=== PATIENT | female | born 1985 | race Caucasian/White ===

== ENCOUNTER 2017-12-15 15:46 | Emergency (ER) | payer OTHER ==
[2017-12-15 16:07] VITALS: BP 114/69
--- NOTE | 2017-12-15 16:21 | UC ---
Throat Pain/Nasal Willi HPI - HPI Summary HPI Summary: 32 yo female presents with 2 weeks of sinus pain/pressure/congestion. She is currently 7.5months and has called her brown sourer about this, whom advised pt to take loratidine. She has been taking this for about a week with no relief. She denies fever, chills, cough, SOB, chest pain, abdominal pain, pelvic pain, or vaginal bleeding. - History of Current Complaint Chief Complaint: UCGeneralIllness Stated Complaint: SINUS PRESSURE,PAIN Time Seen by Provider: 12/15/17 16:21 Hx Obtained From: Patient Onset/Duration: Gradual Onset Severity: Mild Pain Intensity: 4 Pain Scale Used: 0-10 Numeric - Allergies/Home Medications Allergies/Adverse Reactions: Allergies Allergy/AdvReac Type Severity Reaction Status Date / Time No Known Allergies Allergy Verified 12/15/17 16:07 Home Medications: Home Medications Calcium Carbonate [Calcium Antacid] 200 mg PO DAILY WITH MEAL 12/15/17 [History Confirmed 12/15/17] Loratadine 10 mg PO DAILY WITH MEAL 12/15/17 [History Confirmed 12/15/17] PMH/Surg Hx/FS Hx/Imm Hx - Additional Past Medical History Additional PMH: None - Surgical History Surgical History: Yes Surgery Procedure, Year, and Place: c section. appy - Family History Known Family History: Positive: None - Social History Occupation: Employed Full-time Lives: With Family Alcohol Use: None Substance Use Type: None Smoking Status (MU): Never Smoked Tobacco Review of Systems Constitutional: Negative Skin: Negative Eyes: Negative ENT: Nasal Discharge, Sinus Congestion, Sinus Pain/Tenderness Respiratory: Negative Cardiovascular: Negative Gastrointestinal: Negative Neurological: Negative Psychological: Negative All Other Systems Reviewed And Are Negative: Yes Physical Exam - Summary Physical Exam Summary: GENERAL: NAD. WDWN. No pain distress. SKIN: No rashes, sores, lesions, or open wounds. HEENT: Head: AT/NC Eyes: EOM intact. Conjunctiva clear without inflammation or discharge. Ears: Hearing grossly normal. TMs intact, no bulging, erythema, or edema. Nose: Nasal mucosa mildly swollen and erythematous with yellow/ clear discharge. TTP maxillary sinus. Throat: Posterior oropharynx without exudates, erythema, or tonsillar enlargement. Uvula midline. NECK: Supple. Nontender. No lymphadenopathy. CHEST: CTAB. No r/r/w. No accessory muscle use. Breathing comfortably and in no distress. CV: RRR. Without m/r/g. Pulses intact. Brisk cap refill. NEURO: Alert. CN II-XII grossly intact. PSYCH: Age appropriate behavior. Triage Information Reviewed: Yes Vital Signs: Initial Vital Signs Temp 98.3 F 12/15/17 16:03 Pulse 82 12/15/17 16:03 Resp 22 12/15/17 16:03 BP 114/69 12/15/17 16:03 Pulse Ox 99 12/15/17 16:03 Vital Signs Reviewed: Yes Throat Pain/Nasal Course/Dx - Course Course Of Treatment: Sinusitis - Differential Dx/Diagnosis Provider Diagnoses: Sinusitis Discharge - Sign-Out/Discharge Documenting (check all that apply): Patient Departure - Discharge Plan Condition: Stable Disposition: HOME Prescriptions: Amoxicillin PO (*) [Amoxicillin 500 MG CAP*] 500 mg PO Q12H #20 cap Patient Education Materials: Sinusitis (ED) Referrals: Sanjay Salmeron MD [Primary Care Provider] - Additional Instructions: If you develop a fever, shortness of breath, chest pain, new or worsening symptoms - please call your PCP or go to the ED. - Billing Disposition and Condition Condition: STABLE Disposition: Home
== END 2017-12-15 16:45 | disposition home or self-care (01) ==
LOC: UCEAST 15:46
DX: J32.9 Chronic sinusitis, unspecified (principal)
CPT/HCPCS: 99212; G0463

== ENCOUNTER 2018-01-14 07:45 | Inpatient (IN) | payer OTHER ==
[2018-01-27] MEDS ORDERED: Buffered Lidocaine 0.9% SYRIN* 5 ML/SYR SYRINGE INTRADERM ONE (20:46)
[2018-01-28] MEDS ORDERED: Acetaminophen TAB* 325 MG PO ONE (06:00)
[2018-01-28] MEDS ORDERED: Sodium Citrate/Citric Acid* 15 ML UDC PO ONE (06:00)
--- OUTSIDE RECORDS SUMMARY | 2018-01-28 06:07 | XMS REPORT ---
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 Payers Type Date Identification Numbers Payment Provider Subscriber Commercial Policy Number: [id number] [facility] Crystal Montalvo PayID: [id number] [address] [place] [address] Medigap Part B Policy Number: [id number] Medicaid [place] Crystal Montalvo PayID: [id number] [address] [place] [address] Problems Date Description Provider Status Onset: Gestation period, 23 weeks Active Onset: Vaginal bleeding Active Family History Date Family Member(s) Problem(s) Comments Father due to Unknown Causes () Mother due to Unknown Causes () Children 2 First Daughter A&W Second Daughter A&W Siblings 1 First Brother due to Accident () Paternal Grandfather due to Natural Causes () Paternal Grandmother due to Natural Causes () Maternal Grandfather due to Natural Causes () Maternal Grandmother A&W Social History Type Date Description Comments Education Highest Level Completed Is High School Diploma Marital Status Single Lives With Boyfriend Lives With Daughters Diet Lactose Intolerant Pets None 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 Cigarette Use Former Cigarette Smoker 2 PPD, quit 2014 ETOH Use Alcohol Use Prior To occasional Recreational Drug Use Does Not Use Drugs Smoking Patient has never smoked Daily Caffeine Does not consume caffeine quit with STD's HPV Allergies, Adverse Reactions, Alerts Date Description Reaction Status Severity Comments 07/24/2017 NKDA active Medications Medication Date Status Form Strength Qnty SIG Indications Ordering Provider No Active Active Unknown Medications 018 Calcium Hx Chewtabs 500mg Once Unknown Antacid 018 - Daily With 018 Meal Loratadine Hx Capsules 10mg Once Unknown 018 - Daily With 018 Meal Amoxicillin Hx Capsules 500mg 20caps Q12H Unknown 018 - 018 Miconazole 7 Hx Suppository 100mg 7units 1 per Mahrie 018 - vagina Rawls, CNM QHS 018 Docusate Hx Capsules 100mg 30caps 1 cap by Erianna Sodium 018 - mouth up Coleman, to 3 CNM 018 times daily as needed Medications Administered in Office Medication Date Status Form Strength Qnty SIG Indications Ordering Provider PT SCRN Tbco Administered Injection Mary Id as Non User 018 MD Cricket Injection Rho Administered Injection Phaelon (D) Immune 018 MD Faviola Globulin, Human, One Dose Package Immunizations CPT Code Status Date Vaccine Lot # [id number] Given 11/04/2017 Tetnus, Diptheria Toxoids And Acellular Pertussis, 5N2YG PT > 7Yrs Old Vital Signs Date Vital Result Comment 01/20/2018 BP Systolic 130 mmHg BP Diastolic 84 mmHg Body Temperature 98.6 F Height 65 inches 5'5" Weight 200.00 lb BMI (Body Mass Index) 33.3 kg/m2 01/15/2018 BP Systolic 123 mmHg BP Diastolic 79 mmHg Body Temperature 97.5 F Heart Rate 81 /min Respiratory Rate 20 /min Height 65 inches Weight 190.00 lb BMI (Body Mass Index) 31.6 kg/m2 12/15/2017 BP Systolic 114 mmHg BP Diastolic 69 mmHg Body Temperature 98.3 F Heart Rate 82 /min Respiratory Rate 22 /min Height 65 inches Weight 183.00 lb BMI (Body Mass Index) 30.4 kg/m2 07/24/2017 BP Systolic 104 mmHg BP Diastolic 60 mmHg Height 64.75 inches 5'4.75" Weight 158.00 lb BMI (Body Mass Index) 26.5 kg/m2 Last Menstrual Period [id number] 3 Parity 2 Results Test Date Test Result H/L Range Note Urine Culture And 01/20/2018 Urine Culture SEE RESULT BELOW 1 Sensitivities Urinalysis Profile 01/15/2018 Urine Color Yellow 2 Urine Appearance Cloudy 2 Urine Specific Drasco 1.006 Low 1.010-1.030 2 Urine pH 7.0 5-9 2 Urine Urobilinogen Negative Negative 2 Urine Ketones Negative Negative 2 Urine Protein Negative Negative 2 Urine Leukocytes 3+ Negative 2 Urine Blood Negative Negative 2 Urine Nitrite Negative Negative 2 Urine Bilirubin Negative Negative 2 Urine Glucose Negative Negative 2 Urine White Blood Cell 3+(>20/hpf) Absent 2 Urine Red Blood Cell 2+(6-10/hpf) Absent 2 Urine Bacteria 3+ Absent 2 Urine Squamous Epithelial Cell Present Absent 2 Urine Culture And 01/15/2018 Urine Culture SEE RESULT BELOW 2, 3 Sensitivities Laboratory test finding 01/05/2018 Genital For GRP B SEE RESULT BELOW 4 Strep Only Laboratory test finding 11/04/2017 Glucose 1 HR Post 105 mg/dL 70-160 5 Prandial CBC With No Diff 11/04/2017 White Blood Count 10.7 10^3/uL 3.5-10.8 Red Blood Count 4.06 10^6/uL 4.00-5.40 Hemoglobin 11.8 g/dL Low 12.0-16.0 Hematocrit 36 % 35-47 Mean Corpuscular Volume 88 fL 80-97 Mean Corpuscular Hemoglobin 29 pg 27-31 Mean Corpuscular HGB Conc 33 g/dL 31-36 Red Cell Distribution Width 14 % 10.5-15 Platelet Count 198 10^3/uL 150-450 Mean Platelet Volume 9.9 um3 7.4-10.4 Laboratory test finding 11/04/2017 AB Screen NEGATIVE 6 Urine Culture And 08/20/2017 Urine Culture SEE RESULT BELOW 7 Sensitivities Laboratory test finding 08/20/2017 Gardnerella/Yeast SEE RESULT BELOW 8 : Vaginal Dna Drug Abuse W/Confirm, Ur 08/20/2017 Urine Alcohol Negative mg/dL Cutoff: 10 Urine Amphetamine Negative ng/mL 9 Urine Barbiturates Negative ng/mL 10 Urine Benzodiazepines Negative ng/mL 11 Urine Cocaine Negative ng/mL 12 Urine Methadone Negative ng/mL Negative 13 Urine Opiates Negative ng/mL Negative 14 Urine Phencyclidine Negative ng/mL Cutoff: 25 Urine Tetrahydrocannabinol Negative ng/mL Cutoff: 50 15 Urine Culture And 07/24/2017 Urine Culture SEE RESULT BELOW 16 Sensitivities Lead 07/24/2017 Lead,Venous, B < 1.0 17 HIV 1/2 AB Evaluation 07/24/2017 HIV 1 2 Antibody Nonreactive Nonreactive 18 Type And Screen 07/24/2017 Patient Blood B Negative Type Antibody Screen NEGATIVE CBC With No Diff 07/24/2017 White Blood Count 9.0 10^3/uL 3.5-10.8 Red Blood Count 4.52 10^6/uL 4.0-5.4 Hemoglobin 13.3 g/dL 12.0-16.0 Hematocrit 38 % 35-47 Mean Corpuscular Volume 85 fL 80-97 Mean Corpuscular Hemoglobin 29 pg 27-31 Mean Corpuscular HGB Conc 35 g/dL 31-36 Red Cell Distribution Width 14 % 10.5-15 Platelet Count 165 10^3/uL 150-450 Mean Platelet Volume 9 um3 7.4-10.4 PNL No Urine 07/24/2017 Rubella Screen Immune IU/mL Immune 19 Hemoglobin A1c 4.6 % 4.0-5.6 20 Hepatitis B Surface Ag Nonreactive Nonreactive 21 Syphillis Igg W/Reflex RPR Nonreactive Nonreactive 22 GC/Chlamydia Dna Probe 07/24/2017 Chlamydia trachomatis Rna Negative Negative Neisseria gonorrhoeae (GC) Rna Negative Negative Laboratory test finding 07/24/2017 Cytology SEE RESULT BELOW 23 1 SEE RESULT BELOW Name: CRYSTAL MONTALVO : [address]: Mary Harley MD Acct: [id number] Unit: [id number] AGE: 32 Location: [facility] Re01/20/18 SEX: F Status: REG REF SPEC: [id number] ANNE: 01/20/18-[address] [facility] [address]: Mary Harley MD REQ: [id number] RECD: 01/21/18 STATUS: COMP _ SOURCE: URINE SPDESC: ORDERED: Urine Culture COMMENTS: [id number] Urine Source: Random Procedure Result Reported Site Urine Culture Final 01/22/18- 1210 ML No Growth (<1,000 CFU/mL) * ML - Main Lab . END OF REPORT DEPARTMENT OF PATHOLOGY, [address] [place] [address] Feng Campbell M.D. Director [facility] # [id number] 2 Urine Source: Clean Catch 3 SEE RESULT BELOW Name: CRYSTAL MONTALVO : [address]: Yoon Shafer MD Acct: [id number] Unit: [id number] AGE: 32 Location: [facility] Re01/15/18 SEX: F Status: DEP REF SPEC: [id number] ANNE: 01/15/[address]: Yoon Shafer MD REQ: [id number] RECD: 01/15/18 STATUS: MARTIR ALEMAN DR: Sanjay Salmeron MD _ SOURCE: URINE SPDESC: ORDERED: Urine Culture Procedure Result Reported Site Urine Culture Final 01/17/18- 43 ML No growth of clinically significant organisms * ML - Main Lab . END OF REPORT DEPARTMENT OF PATHOLOGY, [address] [place] [address] Feng Campbell M.D. Director [facility] # [id number] 4 SEE RESULT BELOW Name: CRYSTAL MONTALVO : [address]: Sanjay Salmeron MD Acct: [id number] Unit: [id number] AGE: 32 Location: [facility] Re01/05/18 SEX: F Status: REG REF SPEC: [id number] ANNE: 01/05/18-[address] [facility] [address]: Sanjay Salmeron MD REQ: [id number] RECD: 01/06/186470 STATUS: COMP _ SOURCE: CER/VAG/RE SPDESC: ORDERED: Grp B Strp Scrn COMMENTS: [id number] QUERIES: Is Patient Penicillin Allergic? N Is patient penicillin allergic and/or sensitivities needed? N Provider Requisition # C77#[id number]_ Procedure Result Reported Site Group B Strep Culture Screen Final 01/08/18- 823 ML Group B Strep Screen Negative * ML - Main Lab . END OF REPORT DEPARTMENT OF PATHOLOGY, [address] [place] [address] Feng Campbell M.D. Director [facility] # [id number] 5 [id number] 7 SEE RESULT BELOW Name: CRYSTAL MONTALVO : [address]: Nettie Whitehead [facility] Acct: [id number] Unit: [id number] AGE: 32 Location: [facility] Re08/20/17 SEX: F Status: REG REF SPEC: [id number] ANNE: 08/20/17-[address]: Nettie Whitehead [facility] REQ: [id number] RECD: 08/21/17 STATUS: COMP _ SOURCE: URINE SPDESC: ORDERED: Urine Culture COMMENTS: [id number] Urine Source: Random Procedure Result Reported Site Urine Culture Final 08/22/17- 1244 ML No Growth (<1,000 CFU/mL) * - [facility] Raphael . END OF REPORT DEPARTMENT OF PATHOLOGY, [address] [place] [address] Feng Campbell M.D. Director [facility] # [id number] 8 SEE RESULT BELOW Name: CRYSTAL MONTALVO : [address]: Nettie Whitehead CNM Acct: [id number] Unit: [id number] AGE: 32 Location: [facility] Re08/20/17 SEX: F Status: REG REF SPEC: [id number] ANNE: 08/20/17-[address] [facility] [address]: Nettie Whitehead [facility] REQ: [id number] RECD: 08/21/17 STATUS: COMP _ SOURCE: VAGINAL SPDESC: ORDERED: AlrinYeast DNA COMMENTS: [id number] Procedure Result Reported Site Gardnerella/Yeast: Vaginal DNA Final 08/22/17- 1146 ML Organism 1 Negative Gardnerella Organism 2 POSITIVE BREANNA The presence of G. vaginalis, although suggestive, is not diagnostic for bacterial vaginosis. Results should be interpreted in conjuction with other clinical and laboratory data available. Women with vaginal discharge should be evaluated for risk factors of cervicitis and pelvic inflammatory disease, toxic shock syndrome (S.aureus), and if present, evaluated for organisms not included in this assay such as N. gonorrhoeae, C. trachomatis, Mobiluncus, Mycoplasma and/or Prevotella. Mixed infections may occur. The performance of this test on patient specimens collected during or immediately after antimicrobial therapy is unknown. The presence or absence of Breanna species, or G. vaginalis cannot be used as a test for therapeutic success or failure. * ML - Main Lab . END OF REPORT DEPARTMENT OF PATHOLOGY, [address] [place] [address] Feng Campbell M.D. Director [facility] # [id number] 9 REFERENCE VALUE Cutoff: 500 10 REFERENCE VALUE Cutoff: 200 11 REFERENCE VALUE Cutoff: 100 12 REFERENCE VALUE Cutoff: 150 13 REFERENCE VALUE Cutoff: 300 14 REFERENCE VALUE Cutoff: 300 15 ADDITIONAL INFORMATION This report is intended for use in clinical monitoring or management of patients. It is not intended for use in employment-related testing. Test Performed by: [facility] - [address] [address] 16 SEE RESULT BELOW Name: CRYSTAL MONTALVO : [address]: Violeta Argueta CNM Acct: [id number] Unit: [id number] AGE: 32 Location: [facility] Re07/24/17 SEX: F Status: REG REF SPEC: [id number] ANNE: 07/24/[address] [facility] [address]: Violeta Argueta [facility] REQ: [id number] RECD: 07/24/17 STATUS: COMP _ SOURCE: URINE SPDESC: ORDERED: Urine Culture COMMENTS: [id number] Procedure Result Reported Site Urine Culture Final 07/26/17- 7298 ML No growth of clinically significant organisms * ML - Main Lab . END OF REPORT DEPARTMENT OF PATHOLOGY, [address] [place] [address] Feng Campbell M.D. Director [facility] # [id number] 17 TEST RESULT UNITS REF RANGE Lead, Venous, B <1.0 mcg/dL 0.0-4.9 ADDITIONAL INFORMATION Testing performed by Inductively Coupled Plasma-Mass Spectrometry (ICP-MS). This test was developed and its performance characteristics determined by [facility] in a manner consistent with CLIA requirements. This test has not been cleared or approved by the U.S. Food and Drug Administration. Test Performed by: [facility] [address] [place] [address] 18 It is recognized that currently available assays for the detection of antibodies to HIV-1 and/or HIV-2 may not detect all infected individuals. HIV antibodies may be undetectable in some stages of the infection and in some clinical conditions. The performance of this assay has not been established for populations of infants or children. Assayed by Chemiluminescence Microparticle Immunoassay on the Siemens Advia Centaur CP. Values obtained with different methods or kits cannot be used interchangeably.The diagnostic specificity of the ADVIA Centaur 1/O/2 Enhanced assay in the low risk population was 99.90% (6052/6058) with a 95% confidence interval of 99.78 to 99.96%. 19 [id number] 20 Therapeutic target for the treatment of diabetes mellitus patients is <7% HBA1C, and in selective patients <6.0%. Please refer to [place] [employer] diabetic care guidelines for further information. 21 [id number] 22 Warning: A positive result is not useful for establishing a diagnosis of syphilis. In most situations, such a result may reflect a prior treated infection; a negative result can exclude a diagnosis of syphilis except for incubating or early primary disease. 23 SEE RESULT BELOW Name: CRYSTAL MONTALVO: [address]: Violeta Argueta [facility] Acct: [id number] Unit: [id number] AGE: 32 Location: [facility] Re07/24/17 SEX: F Status: REG REF SPEC: [id number] ANNE: 07/24/17-[address]: Violeta Argueta [facility] REQ: [id number] RECD: 07/27/17-1230 STATUS: SOUT _ ORDERED: TP IMAGE ANAL, HPV/Thin Prep COMMENTS: [id number] Negative for Intraepithelial lesion or Malignancy Fungal organisms morphologically consistent with Breanna species A. Ectocervical/Endocervical Specimen Adequacy: Satisfactory of evaluation Transformation zone component identified Patient Information: HPV: High risk HPV RNA testing regardless of pap results. Actual Specimen Date: 07/24/17 Last Menstrual Date: 05/02/17 Spec Date if unknown: unknown ?: Y Post Menopausal?: N Hysterectomy?: N Previous Abnormal Pap Smears?:N Other Pertinent History: Pt has yeast infection. Date Time Test Result Flag (u) Normal Range 07/24/17 8147 @ HPV RNA POSITIVE A Negative @ @ The high-risk HPV types detected by the assay include: 16, @ 18, 31, 33, 35, 39, 45, 51, 52, 56, 58, 59, 66, and 68. Signed (signature on file) ALLISON Cunningham (ASCP) 07/29 0907 This Pap test was evaluated with the assistance of the Bina TechnologiesPrep Test Imaging System. Due to cytologic findings at the senior managing director microscope, comprehensive manual rescreening by a Telephone Appointment Clerk may be required. The Pap Smear is a screening test designed to aid in the detection of premalignant and malignant conditions of the uterine cervix. It is not a diagnostic procedure and should not be used as the sole means of detecting cervical cancer. Both false- positive and false- negative reports do occur. Depending on your risk status, a Pap smear should be obtained and evaluated every 1-3 years. END OF REPORT DEPARTMENT OF PATHOLOGY, [address] [place] [address] Feng Campbell M.D. Director [facility] # [id number] Procedures Date CPT Code Description Status 01/05/2018 12319 Echography Uterus Limited Completed 12/09/2017 17387 Biophysical Profile Without Non Stress Test Completed 12/09/2017 40230 Echography Uterus Follow-Up Or Repeat Completed 11/04/2017 07664 Echography Uterus Follow-Up Or Repeat Completed 09/21/2017 07062 Echography Uterus Complete Completed Encounters Type Date Location Provider CPT E/M Dx Office Visit 01/20/2018 3:30p [place] [address] O34.211 Plan of Care Future Appointment(s):03/01/2018 11:30 am - Mary Harley MD at [facility]02/04/2018 11:20 am - Rachid Rawls CNM at [facility]01/28/2018 7:45 am - Yoon Shafer MD at [facility] R001/28/2018 7:45 am - Mary Harley MD at [facility] R001/20/2018 - Mary Harley MDO34.211 Matern care for low transverse scar from prev delComments:Pt desires repeat section . Pt accepts risk to section to include but not limited to infection, bleeding ,damage to internal organs, pain ,scarring, need for blood products. Consent form personally reviewed and signed with patient. All questions were answered.
[2018-01-28] MEDS ORDERED: Sodium Citrate/Citric Acid* 15 ML UDC ONE (07:04)
[2018-01-28] MEDS ORDERED: ceFOXitin 2 GM IVPREMIX* 2 GM/50 ML BAG ONE (07:29)
[2018-01-28] MEDS ORDERED: Morphine PF AMP (0.5MG/ML)* 5 MG/10 ML AMP ONE (07:34)
[2018-01-28] MEDS ORDERED: OXYTOCIN* 10 UNITS/ML 1 ML VIAL ONE (07:35)
[2018-01-28] MEDS ORDERED: Bupivacaine-MPF SPINAL* 7.5 MG/ML - 2ML AMP ONE (07:35)
[2018-01-28] MEDS ORDERED: fentaNYL* 50 MCG/ML 2 ML VIAL (100 MCG VIAL) IV PRN (08:21)
[2018-01-28] MEDS ORDERED: Naloxone* 0.4 MG/ML 1 ML VIAL IV PRN ×2 (08:21→08:22)
[2018-01-28] MEDS ORDERED: DiMENhydriNATE IV* 50 MG/ML VIAL IV PUSH PRN (08:22)
[2018-01-28] MEDS ORDERED: Nalbuphine* 10 MG/ML 1 ML VIAL IV PRN (08:22)
[2018-01-28] MEDS ORDERED: Acetaminophen TAB* 325 MG PO PRN (08:22)
[2018-01-28] MEDS ORDERED: PROCHLORPERAZINE INJ 5 MG/ML 2 ML VIAL IV PRN (08:22)
[2018-01-28] MEDS ORDERED: diPHENhydraMINE IV* 50 MG/ML 1 ml VIAL (BENADRYL) IV PRN (08:22)
[2018-01-28] MEDS ORDERED: HYDROcodone/ACETAMIN 5-325 MG* 1 TAB PO PRN ×2 (08:22)
[2018-01-28] MEDS ORDERED: Scopolamine 1.5 mg* PATCH TRANSDERM PRN (08:22)
[2018-01-28] MEDS ORDERED: Ondansetron INJ* 2 MG/ML VIAL IV PRN (08:22)
[2018-01-28] MEDS ORDERED: Ondansetron INJ* 2 MG/ML VIAL ONE (08:28)
[2018-01-28] MEDS ORDERED: EPHEDrine (Pressors)* 50 MG/ML VIAL ONE (08:28)
[2018-01-28] MEDS ORDERED: Famotidine IV* 10 MG/ML 2 ML (20 mg) ONE (08:28)
[2018-01-28] MEDS ORDERED: Ketorolac INJ* 30 MG/ML 1 ML VIAL ONE (08:28)
[2018-01-28] MEDS ORDERED: RHO D Immune Globulin (HUMAN)* 300 MCG = 1,500 I.U. INJ IM ONE (09:22)
[2018-01-28] MEDS ORDERED: Dibucaine 1% 28.35 GM TUBE PR PRN (09:22)
[2018-01-28] MEDS ORDERED: Glycerin ADULT SUPP PR PRN (09:22)
[2018-01-28] MEDS ORDERED: Witch Hazel PAD* JAR TOPICAL PRN (09:22)
[2018-01-28] MEDS ORDERED: Oxytocin in LR* 20 UNITS/1,000 ML BAG IVPB SCH (10:00)
[2018-01-28] MEDS: Docusate CAP* 100 MG PO SCH ×2 (14:15→21:54)
[2018-01-28] MEDS: Simethicone TAB* 80 MG TAB.CHEW PO SCH ×3 (14:15→21:55)
[2018-01-28] MEDS: Ketorolac INJ* 30 MG/ML 1 ML VIAL IV PRN ×2 (15:43→21:55)
[2018-01-29] MEDS ORDERED: Acetaminophen TAB* 325 MG PO PRN
[2018-01-29] MEDS: oxyCODONE/Acetamin 5/325 MG* TAB PO PRN ×5 (00:17→23:28)
--- NOTE | 2018-01-29 02:21 | OP ---
DATE OF OPERATION: 01/28/18 - ROOM #101 DATE OF : 85 SURGEON: Mary Harley MD RETAIL SERVICE SPECIALIST: Soni. PRE-OP DIAGNOSIS: Intrauterine at 39 weeks, desires repeat section. POST-OP DIAGNOSIS: Intrauterine at 39 weeks, desires repeat section, delivered. OPERATIVE PROCEDURE: Repeat low transverse section. ESTIMATED BLOOD LOSS: 600 cc. URINE OUTPUT: 100 cc of concentrated yellow urine. FLUIDS: 2800 cc of crystalloid. FINDINGS: Revealed a vertex female . Nuchal cord x1. No meconium. Apgars were 9 and 9. Weight was 6 pounds 11 ounces. Placenta manually extracted. Intact 3-vessel cord. Normal tubes and ovaries. No evidence of adhesions. COMPLICATIONS: None apparent. DISPOSITION: Stable to recovery room. DESCRIPTION OF PROCEDURE: The patient was placed in dorsal lithotomy position. The abdomen was prepped and draped in a sterile standard fashion. Anesthesia was identified to appropriate level. The patient was identified with the universal protocol for correct procedure, position, and patient. Incision was made through prior incision. This was carried down through to the fascia. The fascia was scored in the midline and extended laterally and superiorly using curved Tobar scissors. It was superiorly and inferiorly from the rectus muscle upon sharp dissection. The peritoneum was then entered bluntly. Peritoneal incision was extended bluntly. Bladder blade was inserted. Lower uterine segment was identified. No evidence of adhesive disease was noted. The lower uterine segment was tented up with an Allis. An incision was made with scalpel. This was carried down through to membranes. The incision was extended laterally and superiorly using bandage scissors. Amniotomy was created for clear fluid. The was delivered vertex. Nuchal cord reduced. Anterior and posterior shoulder delivered. Cord was allowed to pulse for 60 seconds, and the cord was clamped and then cut, and the was handed off to awaiting air crew officer. After appropriate cord blood was obtained , the placenta was then manually extracted and noted to be intact with 3-vessel cord. The uterus was exteriorized. Cavity was wiped clean, noted to be free of any membranes or placental tissue. Normal tubes and ovaries were noted. The incision itself was reapproximated using 0 Vicryl in 2 layers, the first layer running locked, second layer running imbricated. There was a venous khan to the right side of the hysterotomy site, which was made hemostatic with x4 interrupted [id number] suture using 0 Vicryl. Once hemostasis was assured , uterus was returned intra-abdominally. Colic gutters were lavaged. Hysterotomy site was revisualized and noted to be hemostatic. Peritoneum was then reapproximated using 3-0 Vicryl in a running fashion. The subcu and prefascial layer was lavaged. Hemostasis assured. The fascia was then reapproximated using 0 Vicryl x2 in a running fashion. Subcu was lavaged again. Hemostasis assured with Bovie coagulation and the Camper's fascia was reapproximated using 3-0 Vicryl in an interrupted fashion x5. The skin was then reapproximated using 4-0 Monocryl in a subcuticular fashion x1. Mastisol and Steri's were applied. All sponge, needle, instrument, blade counts were correct throughout the case. The patient tolerated the procedure well and went to recovery room in stable condition. [id number]/[facility] #: [id number] [facility] CENTERCody
[2018-01-29] MEDS: Ketorolac INJ* 30 MG/ML 1 ML VIAL IV PRN (04:13)
[2018-01-29 08:30] LABS: ABS Basophils 0 10^3/ul (0-0.2); ABS Eosinophils 0 10^3/ul (0-0.6); ABS Lymphocytes 1.6 10^3/ul (1.0-4.8); ABS Monocytes 0.6 10^3/ul (0-0.8); ABS Neutrophils 7.3 10^3/ul (1.5-7.7); ABS Nucleated RBC 0 10^3/ul; Eosinophil % 0.5 % (0-6); Hematocrit 29 % (35-47); Hemoglobin 9.7 g/dl (12.0-16.0); Lymphocyte % 16.6 % (25-47); Mean Corpuscular HGB Conc 34 g/dl (31-36); Mean Corpuscular Hemoglobin 26 pg (27-31); Mean Corpuscular Volume 77 fL (80-97); Nucleated Red Blood Cells % 0; Platelet Count 144 10^3/ul (150-450); Red Blood Count 3.72 10^6/ul (4.00-5.40); Red Cell Distribution Width 15 % (10.5-15); White Blood Count 9.5 10^3/ul (3.5-10.8)
[2018-01-29] MEDS: Simethicone TAB* 80 MG TAB.CHEW PO SCH ×3 (10:00→19:18)
[2018-01-29] MEDS: Ibuprofen TAB* 600 MG PO PRN ×3 (10:00→23:28)
[2018-01-29] MEDS: Docusate CAP* 100 MG PO SCH ×3 (14:41→19:18)
[2018-01-29] MEDS: Ferrous Gluconate TAB* 324 MG TAB PO SCH (19:18)
[2018-01-30] MEDS: oxyCODONE/Acetamin 5/325 MG* TAB PO PRN ×4 (04:14→20:25)
[2018-01-30] MEDS: Ibuprofen TAB* 600 MG PO PRN ×3 (06:15→17:43)
[2018-01-30] MEDS: Simethicone TAB* 80 MG TAB.CHEW PO SCH ×4 (09:15→20:29)
[2018-01-30] MEDS: Docusate CAP* 100 MG PO SCH ×3 (09:15→20:28)
[2018-01-30] MEDS ORDERED: RHO D Immune Globulin (HUMAN)* 300 MCG = 1,500 I.U. INJ IM ONE (09:25)
[2018-01-30] MEDS: Ferrous Gluconate TAB* 324 MG TAB PO SCH ×3 (11:00→20:28)
[2018-01-31] MEDS: Ibuprofen TAB* 600 MG PO PRN ×2 (00:20→07:10)
[2018-01-31] MEDS ORDERED: Scopolamine PATCH Remove* 1 NOTE MISC PATCH OFF PRN (08:23)
[2018-01-31 08:25] VITALS: BP 126/62
[2018-01-31] MEDS: Ferrous Gluconate TAB* 324 MG TAB PO SCH (08:31)
[2018-01-31] MEDS: Docusate CAP* 100 MG PO SCH (08:31)
[2018-01-31] MEDS: Simethicone TAB* 80 MG TAB.CHEW PO SCH (08:32)
== END 2018-01-31 12:10 | disposition home or self-care (01) | DRG 540 ==
LOC: MCHOB 01-28 05:42
PROVIDERS: ADMIT Obstetrics & Gynecology; ATTEND Obstetrics & Gynecology
PROC: 10D00Z1 Extraction of Products of Conception, Low, Open Approach (ICD-10-PCS; principal; 2018-01-28 07:45)
DX: O34.211 Maternal care for low transverse scar from previous cesarean delivery (principal); O69.81X0 Labor and delivery complicated by cord around neck, without compression, not applicable or unspecified; O90.81 Anemia of the puerperium; D64.9 Anemia, unspecified; Z3A.39 39 weeks gestation of pregnancy; Z37.0 Single live birth
CPT/HCPCS: 36415; 85025; 85461; 86900; 86901; A9270-GY; J0694; J1885; J2405; J2590; J2790

== ENCOUNTER 2019-06-14 16:27 | Emergency (ER) | payer OTHER ==
[2019-06-14 16:47] VITALS: BP 122/67
[2019-06-14 17:01] LABS: Influenza A Molecular Negative (Negative); Influenza B Molecular Negative (Negative)
--- NOTE | 2019-06-14 18:03 | UC ---
Respiratory Complaint HPI - HPI Summary HPI Summary: 4 DAYS OF SINUS CONGESTION, HEADACHE, FATIGUE AND POSTNASAL DRAINAGE. NO COUGH , FEVER, NAUSEA/VOMITING. - History of Current Complaint Chief Complaint: UCRespiratory Stated Complaint: HEADACHE Time Seen by Provider: 06/14/19 16:40 Hx Obtained From: Patient Onset/Duration: Gradual Onset, Lasting Days, Still Present Timing: Constant Severity Initially: Moderate Severity Currently: Moderate Pain Intensity: 10 Pain Scale Used: 0-10 Numeric Aggravating Factors: Nothing Alleviating Factors: Nothing Associated Signs And Symptoms: Positive: Nasal Congestion, Sinus Discomfort. Negative: Fever, Chills, Wheezing - Allergies/Home Medications Allergies/Adverse Reactions: Allergies Allergy/AdvReac Type Severity Reaction Status Date / Time cinnamon Allergy Hives Verified 01/29/18 08:40 PMH/Surg Hx/FS Hx/Imm Hx Previously Healthy: Yes - Surgical History Surgical History: Yes Surgery Procedure, Year, and Place: c section. appy - Family History Known Family History: Positive: None - Social History Alcohol Use: None Substance Use Type: None Smoking Status (MU): Never Smoked Tobacco - Immunization History Most Recent Influenza Vaccination: unknown Most Recent Pneumonia Vaccination: NA Review of Systems All Other Systems Reviewed And Are Negative: Yes Constitutional: Positive: Fatigue ENT: Positive: Sinus Congestion. Negative: Nasal Discharge Respiratory: Negative: Cough Cardiovascular: Positive: Negative Gastrointestinal: Positive: Negative Neurological: Positive: Headache Physical Exam Triage Information Reviewed: Yes Appearance: No Pain Distress, Well-Nourished, Ill-Appearing - FATIGUED Vital Signs: Initial Vital Signs Temp 97.8 F 06/14/19 16:40 Pulse 58 06/14/19 16:40 Resp 18 06/14/19 16:40 BP 122/67 06/14/19 16:40 Pulse Ox 99 06/14/19 16:40 Laboratory Tests 06/14/19 16:49 Influenza A (Rapid) Negative Influenza B (Rapid) Negative Vital Signs Reviewed: Yes Eyes: Positive: Conjunctiva Clear ENT: Positive: Hearing grossly normal, Pharynx normal, TMs normal Neck: Positive: Supple, Nontender, No Lymphadenopathy Respiratory Exam: Normal Cardiovascular Exam: Normal Abdomen Description: Positive: Soft Musculoskeletal: Positive: No Edema Neurological: Positive: Alert Psychological: Positive: Age Appropriate Behavior Skin: Negative: Rashes Respiratory Course/Dx - Course Course Of Treatment: FLU NEGATIVE. SYMPTOMS ARE LIKELY VIRALLY MEDIATED AND SHOULD RESOLVE ON THEIR OWN WITH TIME. NO INDICATION FOR ANTIBIOTICS AT PRESENT. REST, HYDRATE, OTC MEDS NEEDED. SEEK FOLLOW-UP IF NOT IMPROVING OVER THE NEXT 1-2 WEEKS. - Differential Dx/Diagnosis Provider Diagnosis: Acute viral sinusitis Discharge ED - Sign-Out/Discharge Documenting (check all that apply): Patient Departure All imaging exams completed and their final reports reviewed: No Studies - Discharge Plan Condition: Stable Disposition: HOME Patient Education Materials: Sinusitis (ED) Referrals: Sanjay Salmeron MD [Primary Care Provider] - If Needed Additional Instructions: FLU NEGATIVE. YOUR SYMPTOMS ARE LIKELY VIRALLY MEDIATED AND SHOULD RESOLVE ON THEIR OWN WITH TIME. NO INDICATION FOR ANTIBIOTICS AT PRESENT. REST, HYDRATE, OTC MEDS NEEDED. SEEK FOLLOW-UP IF YOU ARE NOT IMPROVING OVER THE NEXT 1-2 WEEKS. - Billing Disposition and Condition Condition: STABLE Disposition: Home
== END 2019-06-14 17:37 | disposition home or self-care (01) ==
LOC: UCEAST 16:27
DX: J01.80 Other acute sinusitis (principal); Z91.018 Allergy to other foods
CPT/HCPCS: 99211; G0463

== ENCOUNTER 2019-06-25 19:57 | Emergency (ER) | payer OTHER ==
[2019-06-25 20:06] VITALS: BP 111/58
--- NOTE | 2019-06-25 20:30 | UC ---
Respiratory Complaint HPI - HPI Summary HPI Summary: 33-year-old female presenting with cough and nasal congestion 2 weeks. Patient states her cough has worsened over the past 4 days and she has developed a sore throat as well. Also notes nasal congestion x2 weeks, stating she cannot breathe through her nose. Notes sinus pain and headache. States cough is nonproductive. No shortness of breath only with coughing fits. Denies wheezing and chest pain. Denies nausea or vomiting. Denies fevers. Notes chills. Patient states that she was seen 2 weeks ago and told it was viral and she would get better. - History of Current Complaint Chief Complaint: UCRespiratory Stated Complaint: COUGH, CONGESTION Hx Obtained From: Patient Hx Last Menstrual Period: on bc, doesn't get them. Pain Intensity: 10 Pain Scale Used: 0-10 Numeric - Allergies/Home Medications Allergies/Adverse Reactions: Allergies Allergy/AdvReac Type Severity Reaction Status Date / Time cinnamon Allergy Hives Verified 06/25/19 20:06 PMH/Surg Hx/FS Hx/Imm Hx - Surgical History Surgical History: Yes Surgery Procedure, Year, and Place: c section. appy - Family History Known Family History: Positive: None - Social History Alcohol Use: Occasionally Substance Use Type: None Smoking Status (MU): Never Smoked Tobacco - Immunization History Most Recent Influenza Vaccination: unknown Most Recent Pneumonia Vaccination: NA Review of Systems All Other Systems Reviewed And Are Negative: Yes Constitutional: Positive: Chills, Fatigue ENT: Positive: Sore Throat, Nasal Discharge, Sinus Congestion, Sinus Pain/ Tenderness Respiratory: Positive: Cough - nonproductive. Negative: Shortness Of Breath Cardiovascular: Positive: Negative Gastrointestinal: Positive: Negative Musculoskeletal: Positive: Myalgia Neurological/Mental Status: Positive: Headache Physical Exam - Summary Physical Exam Summary: Vital Signs Reviewed: Yes A+Ox3, no distress Eyes: Conjunctiva Clear ENT: Hearing grossly normal, TM x 2 clear, +nasal congestion, +sinus tenderness , moist, uvula midline, no exudate, +pharyngeal erythema Neck: Positive: Supple Respiratory: Positive: No respiratory distress, No accessory muscle use + CTA throughout no w/r Cardiovascular: RRR nl s1, s2 no m/r Musculoskeletal Exam: [place] x 4 without difficulty Neurological: Positive: Alert Psychological: Positive: age appropriate behavior Skin: Positive: no rash, no ecchymosis Vital Signs: Initial Vital Signs Temp 97.8 F 06/25/19 20:03 Pulse 69 06/25/19 20:03 Resp 18 06/25/19 20:03 BP 111/58 06/25/19 20:03 Pulse Ox 100 06/25/19 20:03 Lab Results 06/25/19 Range/Units 21:17 Influenza A (Rapid) Negative (Negative) Influenza B (Rapid) Negative (Negative) Respiratory Course/Dx - Course Course Of Treatment: Negative rapid flu. Discussed viral illness versus bacterial illness. I treated patient with Augmentin for acute sinusitis. Educated on acute viral bronchitis and instructed to continue with symptomatic treatment for that. Instructed to follow up with PCP if symptoms worsen or persist. Patient voiced understanding and agreed with treatment plan. - Differential Dx/Diagnosis Provider Diagnosis: Acute sinusitis, Acute bronchitis Discharge ED - Sign-Out/Discharge Documenting (check all that apply): Patient Departure All imaging exams completed and their final reports reviewed: No Studies - Discharge Plan Condition: Stable Disposition: HOME Prescriptions: Amoxicillin/Clavulanate TAB* [Augmentin TAB 875*] 875 mg PO BID #13 tab Fluticasone NASAL SPRAY 50MCG* [Flonase NASAL SPRAY 50MCG*] 2 spray BOTH NARES DAILY PRN #1 btl PRN Reason: Congestion Patient Education Materials: Sinusitis (ED), Acute Bronchitis (ED) Referrals: Sanjay Salmeron MD [Primary Care Provider] - If Needed Additional Instructions: Take Augmentin as prescribed for treatment of your sinusitis. You received the first dose tonight. Use Flonase to help relieve nasal congestion. You may take an over the counter decongestant, such as mucinex. Get plenty of rest and fluids. A humidifier at night may also help your symptoms. Follow-up with her primary care provider if symptoms worsen or do not resolve within 7 days. - Billing Disposition and Condition Condition: STABLE Disposition: Home
[2019-06-25 21:28] LABS: Influenza A Molecular Negative (Negative); Influenza B Molecular Negative (Negative)
[2019-06-25] MEDS ORDERED: Amoxicillin/Clavulanate TAB* 875 MG PO ONE (21:33)
== END 2019-06-25 21:45 | disposition home or self-care (01) ==
LOC: UCEAST 19:57
DX: J32.9 Chronic sinusitis, unspecified (principal); J20.9 Acute bronchitis, unspecified; J02.9 Acute pharyngitis, unspecified; Z91.018 Allergy to other foods
CPT/HCPCS: 99212; A9270-GY; G0463

== ENCOUNTER 2019-07-27 17:15 | Emergency (ER) | payer OTHER ==
--- NOTE | 2019-07-27 17:16 | UC ---
Respiratory Complaint HPI - HPI Summary HPI Summary: 34 yo female presents with URI symptoms. She tells me that she was seen 1 month ago for sinus symptoms and cough and was placed on Augmentin. Her sinus symptoms improved, but for the last 2 weeks she has had a dry cough and feels congested in her lungs. She is concerned for COVID today. She has not been taking anything OTC for her symptoms. She denies fever, chills, sore throat, chest pain, abdominal pain, n/v/d. She does not smoke. No known COVID exposure Hx of asthma as a child - History of Current Complaint Stated Complaint: COUGH, SOB Time Seen by Provider: 07/27/19 17:16 Hx Obtained From: Patient Hx Last Menstrual Period: on bc, doesn't get them. Onset/Duration: Gradual Onset Severity Initially: Mild Severity Currently: Moderate Pain Intensity: 5 Pain Scale Used: 0-10 Numeric - Allergies/Home Medications Allergies/Adverse Reactions: Allergies Allergy/AdvReac Type Severity Reaction Status Date / Time cinnamon Allergy Hives Verified 06/25/19 20:06 Home Medications: Home Medications Amoxicillin/Clavulanate TAB* [Augmentin TAB 875*] 875 mg PO BID #13 tab [Rx] Fluticasone NASAL SPRAY 50MCG* [Flonase NASAL SPRAY 50MCG*] 2 spray BOTH NARES DAILY PRN #1 btl 06/25/19 [Rx] Albuterol HFA INHALER* [Ventolin HFA Inhaler*] 1 - 2 puff INH Q6H PRN #1 mdi [Rx] Benzonatate CAP* [Tessalon 100 MG CAP*] 100 mg PO TID PRN #21 cap 07/27/19 [Rx] DOXYcycline CAP(*) [DOXYcycline 100MG CAP(*)] 100 mg PO BID #14 cap 07/27/19 [Rx ] PMH/Surg Hx/FS Hx/Imm Hx - Additional Past Medical History Additional PMH: None - Surgical History Surgical History: Yes Surgery Procedure, Year, and Place: c section. appy - Family History Known Family History: Positive: None - Social History Lives: With Family Alcohol Use: Occasionally Substance Use Type: None Smoking Status (MU): Never Smoked Tobacco - Immunization History Most Recent Influenza Vaccination: unknown Most Recent Pneumonia Vaccination: NA Review of Systems All Other Systems Reviewed And Are Negative: No Constitutional: Positive: Negative Skin: Positive: Negative Eyes: Positive: Negative ENT: Positive: Negative Respiratory: Positive: Shortness Of Breath, Cough Cardiovascular: Positive: Negative Gastrointestinal: Positive: Negative Neurovascular: Positive: Negative Neurological/Mental Status: Positive: Negative Psychological: Positive: Negative Physical Exam - Summary Physical Exam Summary: GENERAL: NAD. WDWN. No pain distress. SKIN: No rashes, sores, lesions, or open wounds. HEENT: Head: AT/NC Eyes: EOM intact. Conjunctiva clear without inflammation or discharge. Ears: Hearing grossly normal. TMs intact, no bulging, erythema, or edema. Nose: Nasal mucosa pink and moist. NTTP maxillary and frontal sinus. Throat: Posterior oropharynx without exudates, erythema, or tonsillar enlargement. Uvula midline. NECK: Supple. Nontender. No lymphadenopathy. CHEST: CTAB. No r/r/w. No accessory muscle use. Breathing comfortably and in no distress. CV: RRR. Pulses intact. Cap refill <2seconds NEURO: Alert. PSYCH: Age appropriate behavior. Triage Information Reviewed: Yes Vital Signs: Vital Signs: Temp Pulse Resp BP Pulse Ox 99.3 F 80 16 120/82 99 07/27/19 17:55 07/27/19 17:55 07/27/19 17:55 07/27/19 17:55 07/27/19 17:55 Laboratory Tests 07/27/19 07/27/19 17:46 17:49 Influenza A (Rapid) Negative Influenza B (Rapid) Negative Group A Strep Rapid Negative Vital Signs Reviewed: Yes Diagnostics - Radiology CXR Radiology Interpretation Completed By: ED Physician Summary of Radiographic Findings: NAD Respiratory Course/Dx - Course Course Of Treatment: POC strep and flu negative. CXR wet read negative. Suspect bronchitis > COVID Exam performed utilizing CDC recommended PPE. You are being tested for COVID-19. You need to quarantine yourself in a bedroom and bathroom only you are using. You may not leave the house. [facility] will contact you and notify of results when they are available. Advised to be on home isolation until cleared by the health department. Go to ED for increased SOB or any difficulty breathing - new or worsening symptoms. - Differential Dx/Diagnosis Provider Diagnosis: Bronchitis Discharge ED - Sign-Out/Discharge Documenting (check all that apply): Patient Departure All imaging exams completed and their final reports reviewed: No - Discharge Plan Condition: Stable Disposition: HOME Prescriptions: Albuterol HFA INHALER* [Ventolin HFA Inhaler*] 1 - 2 puff INH Q6H PRN #1 mdi PRN Reason: Sob/Wheezing Benzonatate CAP* [Tessalon 100 MG CAP*] 100 mg PO TID PRN #21 cap PRN Reason: Cough DOXYcycline CAP(*) [DOXYcycline 100MG CAP(*)] 100 mg PO BID #14 cap Patient Education Materials: Acute Bronchitis (ED) Referrals: Sanjay Salmeron MD [Primary Care Provider] - Additional Instructions: Strep and flu negative. CXR wet read negative. You are being tested for COVID-19. You need to quarantine yourself in a bedroom and bathroom only you are using. You may not leave the house. [facility] will contact you and notify of results when they are available. Advised to be on home isolation until cleared by the health department. Go to ED for increased SOB or any difficulty breathing - new or worsening symptoms. - Billing Disposition and Condition Condition: STABLE Disposition: Home
[2019-07-27 17:58] VITALS: BP 120/82
[2019-07-27 18:01] LABS: Influenza A Molecular Negative (Negative); Influenza B Molecular Negative (Negative)
--- NOTE | 2019-07-28 10:15 | UC ---
- Progress Note Progress Note: wet read correct Course/Dx - Diagnoses Provider Diagnoses: Bronchitis Discharge ED - Sign-Out/Discharge Documenting (check all that apply): Post-Discharge Follow Up All imaging exams completed and their final reports reviewed: Yes - Discharge Plan Condition: Stable Disposition: HOME Prescriptions: Albuterol HFA INHALER* [Ventolin HFA Inhaler*] 1 - 2 puff INH Q6H PRN #1 mdi PRN Reason: Sob/Wheezing Benzonatate CAP* [Tessalon 100 MG CAP*] 100 mg PO TID PRN #21 cap PRN Reason: Cough DOXYcycline CAP(*) [DOXYcycline 100MG CAP(*)] 100 mg PO BID #14 cap Patient Education Materials: Acute Bronchitis (ED) Forms: *Work Release Referrals: Sanjay Salmeron MD [Primary Care Provider] - Additional Instructions: Strep and flu negative. CXR wet read negative. You are being tested for COVID-19. You need to quarantine yourself in a bedroom and bathroom only you are using. You may not leave the house. [facility] will contact you and notify of results when they are available. Advised to be on home isolation until cleared by the health department. Go to ED for increased SOB or any difficulty breathing - new or worsening symptoms. - Billing Disposition and Condition Condition: STABLE Disposition: Home
== END 2019-07-27 18:35 | disposition home or self-care (01) ==
LOC: UCEAST 17:15
DX: J40 Bronchitis, not specified as acute or chronic (principal); Z91.018 Allergy to other foods
CPT/HCPCS: 71046; 87651; 99212; G0463; U0002